=== PATIENT | female | born 1950 | race Caucasian/White ===

== ENCOUNTER 2018-03-12 09:03 | Day surgery (SDC) | payer OTHER ==
[~2018-03-12] VITALS: Ht 177.8 cm; Wt 147.7 kg
[2018-03-12] MEDS ORDERED: SODIUM CHLORIDE 0.9% 1,000 ML IV ONE (09:53)
[2018-03-12] MEDS ORDERED: LIDOCAINE 2%, 2ML ONE (09:56)
[2018-03-12] MEDS ORDERED: FENTANYL PF 100 MCG/2ML ONE (09:56)
[2018-03-12] MEDS ORDERED: VERAPAMIL 2.5 MG/ML, 2ML ONE (09:56)
[2018-03-12] MEDS ORDERED: HEPARIN 1,000 UNITS/ML, 10ML ONE (09:56)
[2018-03-12] MEDS ORDERED: MIDAZOLAM 1 MG/ML, 5ML ONE (09:57)
[2018-03-12 10:05] VITALS: BP 131/75
[2018-03-12] MEDS ORDERED: LOSA100T6 PO (10:15)
[2018-03-12] MEDS ORDERED: METF500T4 PO ×3 (10:15)
[2018-03-12] MEDS ORDERED: DEXL60CA2 PO (10:15)
[2018-03-12] MEDS ORDERED: LEVO25TA4 PO (10:15)
[2018-03-12] MEDS ORDERED: METO50TA82 PO (10:16)
[2018-03-12] MEDS ORDERED: ESCI10TA PO (10:16)
[2018-03-12] MEDS ORDERED: CYAN25009 PO (10:25)
[2018-03-12] MEDS ORDERED: RA COL RITE PO (10:25)
[2018-03-12] MEDS ORDERED: CLON-364 PO (10:25)
[2018-03-12] MEDS ORDERED: UBID100C41 PO (10:25)
[2018-03-12] MEDS ORDERED: [UNRECOGNIZED DRUG - OTHER] PO (10:25)
[2018-03-12] MEDS ORDERED: LACT1CAP35 PO (10:25)
[2018-03-12] MEDS ORDERED: MELA10TA PO (10:25)
[2018-03-12] MEDS ORDERED: SIMV20TA3 PO (10:25)
[2018-03-12] MEDS ORDERED: CRAN1CAP8 PO (10:25)
[2018-03-12] MEDS ORDERED: aloe vera PO (10:25)
[2018-03-12] MEDS ORDERED: [UNRECOGNIZED DRUG - OTHER] PO (10:25)
[2018-03-12] MEDS ORDERED: CHRO400T6 PO (10:28)
[2018-03-12] MEDS ORDERED: LEVO250C PO (10:28)
[2018-03-12] MEDS ORDERED: iodine PO (10:28)
[2018-03-12] MEDS ORDERED: VITA100C8 PO (10:28)
[2018-03-12] MEDS ORDERED: SODIUM CHLORIDE 0.9% 1,000 ML IV SCH (11:58)
== END 2018-03-12 15:18 ==
LOC: CACL 09:03
PROVIDERS: ATTEND Internal Medicine Cardiovascular Disease
DX: R06.02 Shortness of breath (principal); E11.22 Type 2 diabetes mellitus with diabetic chronic kidney disease; I12.9 Hypertensive chronic kidney disease with stage 1 through stage 4 chronic kidney disease, or unspecified chronic kidney disease; N18.3 Chronic kidney disease, stage 3 (moderate); K76.0 Fatty (change of) liver, not elsewhere classified; E78.00 Pure hypercholesterolemia, unspecified; M10.9 Gout, unspecified; F32.9 Major depressive disorder, single episode, unspecified; F41.9 Anxiety disorder, unspecified; K21.9 Gastro-esophageal reflux disease without esophagitis; Z98.890 Other specified postprocedural states; Z87.39 Personal history of other diseases of the musculoskeletal system and connective tissue; Z88.1 Allergy status to other antibiotic agents; Z88.5 Allergy status to narcotic agent; Z88.8 Allergy status to other drugs, medicaments and biological substances
CPT/HCPCS: 93460; 99156; 99157; C1769; C1894; J1644; J2250; J3010; J3490; J7030; Q9967

== ENCOUNTER → 2018-12-16 | Outpatient (CLI) | payer MEDICARE ==
[~2018-12-16] MED LIST: CHRO400T6 PO; CLON0.5T11 PO; CRAN1CAP8 PO; CYAN25009 PO; DEXL60CA2 PO; ESCI10TA PO; LACT1CAP35 PO; LEVO250C PO; LEVO25TA4 PO; LOSA100T14 PO; MELA10TA PO; METF500T17 PO; METO50TA82 PO; RA COL RITE PO; SIMV20TA3 PO; UBID100C41 PO; VITA100C8 PO; [UNRECOGNIZED DRUG - OTHER] PO; [UNRECOGNIZED DRUG - OTHER] PO; aloe vera PO; iodine PO
== END | disposition home or self-care (01) ==
LOC: CVU 10:47
PROVIDERS: ATTEND Internal Medicine Cardiovascular Disease
DX: I51.7 Cardiomegaly (principal); I35.8 Other nonrheumatic aortic valve disorders; I27.0 Primary pulmonary hypertension; E78.5 Hyperlipidemia, unspecified; R06.02 Shortness of breath
CPT/HCPCS: 0399T; 93306

== ENCOUNTER 2019-10-20 12:19 | Outpatient (CLI) | payer MEDICARE | END 2019-10-20 23:59 | disposition home or self-care (01) | LOC: CVU 12:19 | PROVIDERS: ATTEND Internal Medicine Cardiovascular Disease | DX: I08.2 Rheumatic disorders of both aortic and tricuspid valves (principal); I11.9 Hypertensive heart disease without heart failure; I27.20 Pulmonary hypertension, unspecified | CPT/HCPCS: 93306 ==